=== PATIENT | female | born 1970 | race Caucasian/White ===

== ENCOUNTER 2021-09-22 12:52 | Outpatient (CLI) | payer OTHER ==
[~2021-09-22 12:52] MED LIST: Magnevist 469MG/ML 20 ML VIAL ONE
[2021-09-25 10:15] LABS: Estimated GFR-MDRD - POC Greater than 90
== END 2021-09-22 12:53 | disposition home or self-care (01) ==
LOC: BICMRI 12:52
PROVIDERS: ATTEND Family Medicine
DX: S62.101D Fracture of unspecified carpal bone, right wrist, subsequent encounter for fracture with routine healing (principal); S63.591D Other specified sprain of right wrist, subsequent encounter; M19.031 Primary osteoarthritis, right wrist; M65.831 Other synovitis and tenosynovitis, right forearm
CPT/HCPCS: 82565; A9579